=== PATIENT | female | born 1980 ===

== ENCOUNTER 2020-06-25 08:22 | Inpatient (IN) | payer SELFPAY ==
[2020-06-25] MEDS ORDERED: ePHEDrine SULFATE 50 MG/1 ML INJ IV PRN (11:28)
[2020-06-25] MEDS ORDERED: LIDOCAINE (2%) 20 MG/1 ML VIAL 20 ML MDV INFILTRATI ONE (11:28)
[2020-06-25] MEDS ORDERED: MINERAL OIL 30 ML ORAL LIQD PO PRN (11:28)
[2020-06-25] MEDS ORDERED: TERBUTALINE 1 MG/1 ML INJ SUB-Q PRN (11:28)
[2020-06-25] MEDS ORDERED: OXYTOCIN 20 UNIT/1000ML DRIP 20 UNITS/1,000 ML BAG IV SCH (12:00)
[2020-06-25] MEDS ORDERED: OXYTOCIN DRIP 30 UNITS/500 ML BAG IV SCH (12:00)
[2020-06-25] MEDS ORDERED: DINOPROSTONE 10 MG VAG SUPP VG ONE (12:40)
--- NOTE | 2020-06-25 12:46 | History and Physical Report ---
History of Present Illness Date of examination: 06/25/20 Date of admission: 06/25/20 Chief complaint: Pt presents to L&D for an induction r/t AMA and LGA. She admits to active FM. History of present illness: 43 y/o female presented to [facility] for a scheduled IOL r/t AMA and LGA. Pt initiated pnc at [facility] y at 10.2 wks. She has a hx of LGA, obesity, and anxiety. GBS is neg. Pt was admitted to L&D for a cervidil induction. Past History Past Medical History: other (ama) Past Surgical History: no surgical history Family/Genetic History: diabetes Social history: no significant social history, - Obstetrical History Expected Date of Delivery: 06/19/20 Actual Gestation: 40 Week(s) 6 Day(s) : 5 Para: 4 Hx # Term Pregnancies: 5 Number of Pregnancies: 0 Number of Living Children: 4 Medications and Allergies Allergies Allergy/AdvReac Type Severity Reaction Status Date / Time No Known Allergies Allergy Unverified 06/25/20 11:14 Active Meds: Active Medications Acetaminophen (Tylenol) 650 mg PO Q4H PRN PRN Reason: Pain, Mild (1-3) Ephedrine Sulfate (Ephedrine Sulfate) 10 mg IV Q2M PRN PRN Reason: Hypotension Oxytocin/Sodium Chloride (Pitocin/Ns 30 Unit/500ml) 30 units in 500 mls @ 2 mls/hr IV TITR SERGE; Protocol Lactated Ringer's (Lactated Ringers) 1,000 mls @ 125 mls/hr IV DIRECT SERGE Oxytocin/Sodium Chloride (Pitocin/Ns 20 Unit/1000ml Drip) 20 units in 1,000 mls @ 125 mls/hr IV DIRECT SERGE Mineral Oil (Mineral Oil) 30 ml PO QHS PRN PRN Reason: Constipation Terbutaline Sulfate (Brethine) 0.25 mg SUB-Q ONCE PRN PRN Reason: Hyperstimulation/Hypertonicity Review of Systems All systems: negative Eyes: deferred Ears, nose, mouth and throat: deferred Breasts: normal - Vital Signs Vital signs: Vital Signs Pulse BP 76 134/71 06/25/20 09:20 06/25/20 09:20 Temp Pulse Resp BP Pulse Ox 98.3 F 75 17 134/71 98 10/01/20 09:21 06/25/20 11:37 06/25/20 09:21 06/25/20 09:21 06/25/20 11:37 - Physical Exam Breasts: Positive: normal Cardiovascular: Regular rate Lungs: Positive: Clear to auscultation Abdomen: Positive: normal appearance, soft, normal bowel sounds, other (gravid) Genitourinary (Female): Positive: normal external genitalia, normal perenium Vulva: both: normal Vagina: Positive: normal moisture Uterus: Positive: normal size, normal contour Anus/Rectum: Positive: normal perianal skin Extremities: Positive: normal - Obstetrical FHR: auscultation normal, category 1 Uterine Contraction Monitor Mode: External Cervical Dilatation: 1 Cervical Effacement Percentage: 40 station: -3 Uterine Contraction Pattern: Irregular Uterine Tone Measurement Phase: Resting Uterine Contraction Intensity: Mild Results All other labs normal. Assessment and Plan A: IUP@ 40.6 wks postdates AMA, anxiety, obesity, Hx LGA P:Admit to L&D for cervidil induction Continuous monitoring Pain med/Epidural prn Anticipate - Patient Problems (1) Post-dates Current Visit: Yes Status: Acute (2) AMA (advanced maternal age) multigravida 35+ Current Visit: Yes Status: Acute (3) Anxiety Current Visit: Yes Status: Acute (4) Obesity Current Visit: Yes Status: Acute
[2020-06-25 13:44] LABS: Hematocrit 35.2 % (30.3-42.9); Hemoglobin 12.2 gm/dl (10.1-14.3); Mean Corpuscular HGB Conc 35 % (30-34); Mean Corpuscular Volume 91 fl (79-97); Red Blood Count 3.86 M/mm3 (3.65-5.03); Red Cell Distribution Width 14.5 % (13.2-15.2)
[2020-06-25 13:49] LABS: Platelet Count 187 K/mm3 (140-440)
[2020-06-25] MEDS: ACETAMINOPHEN 325 MG TAB PO PRN ×2 (13:56→18:14)
[2020-06-25] MEDS: LACTATED RINGERS 1,000 ML IV SCH ×2 (15:48→23:38)
[2020-06-26] MEDS: LACTATED RINGERS 1,000 ML IV SCH ×3 (06:15→16:33)
[2020-06-26] MEDS ORDERED: DEXMEDETOMIDINE 200 MCG/2 ML VIAL IV ONE (12:23)
--- NOTE | 2020-06-26 12:59 | Anesthesia Consultation ---
Anesthesia Consult and Med Hx Date of service: 06/26/20 - Airway Anesthetic Teeth Evaluation: Good ROM Head & Neck: Adequate Mental/Hyoid Distance: Adequate Mallampati Class: Class II Intubation Access Assessment: Probably Good - Pulmonary Exam CTA: Yes - Cardiac Exam Cardiac Exam: RRR - Pre-Operative Health Status ASA Pre-Surgery Classification: ASA2 Proposed Anesthetic Plan: Epidural - Pulmonary Hx Smoking: No Hx Asthma: No COPD: No Hx Pneumonia: No Hx Sleep Apnea: No - Cardiovascular System Hx Hypertension: No - Central Nervous System Hx Seizures: No Hx Psychiatric Problems: No - Gastrointestinal Hx Gastroesophageal Reflux Disease: No - Endocrine Hx Renal Disease: No Hx End Stage Renal Disease: No Hx Hypothyroidism: No Hx Hyperthyroidism: No - Hematic Hx Anemia: No Hx Sickle Cell Disease: No - Other Systems Hx Alcohol Use: No
[2020-06-26] MEDS ORDERED: NalbUPHINE 10 MG/1 ML INJ IV PRN (13:03)
[2020-06-26] MEDS ORDERED: NALOXONE 2 MG/2 ML INJ IV PRN (13:03)
[2020-06-26] MEDS ORDERED: ONDANSETRON 4 MG/2 ML INJ IV PRN (13:03)
[2020-06-26] MEDS ORDERED: diphenhydrAMINE 50 MG/ML VIAL IV PRN (13:03)
--- NOTE | 2020-06-26 13:03 | Progress Note ---
Labor Epidural - Labor Epidural Start Time: 12:30 Stop Time: 12:49 Performed by:: FREDERICK ORELLANA (Ly LOREDO) Procedure: Patient is requesting a laboring epidural for laboring pain. Patient IDed, H&P reviewed, all questions and concerns were answered, and consent was signed. Timeout was performed at bedside. Patient in sitting position. Sterile prep and drape was performed. 3ml of 1% lidocaine skin wheal at L[3]- L [4]. 18-gau ge Touhy epidural needle was advanced, 1st attempt unsuccessful. 2nd attempt 3ml of 1% lidocaine skin wheal at L[2]- L [3]. 18-gauge Touhy epidural needle was advanced to loss of resistance with air technique. Negative CSF negative blood. Epidural catheter advanced to [12] centimeters. [-] Aspiration [-] test dose. Sterile dressing applied. Patient tolerated procedure.
[2020-06-26] MEDS ORDERED: fentaNYL-BUPIV 2 MCG/ML-0.125% 200 MCG/100 ML BAG EPIDURAL SCH (14:00)
[2020-06-26] MEDS ORDERED: PROMETHAZINE 25 MG TAB PO PRN (16:53)
[2020-06-26] MEDS ORDERED: LANOLIN/ZINC/DIMETHICONE (LANSINOH) 7 GM TP PRN (16:53)
[2020-06-26] MEDS ORDERED: WITCH HAZEL/ GLYCERIN PAD TP PRN (16:53)
[2020-06-26] MEDS ORDERED: MAGNESIUM HYDROXIDE (MOM) ORAL LIQD UDC PO PRN (16:53)
[2020-06-26] MEDS ORDERED: diphenhydrAMINE 25 MG CAP PO PRN (16:53)
--- NOTE | 2020-06-26 17:08 | Procedure Note ---
OB Delivery Note - Delivery Date of Delivery: 06/26/20 (1602) Surgeon: FERNANDA ESCOBEDO (CNM) Estimated blood loss: 200cc - Vaginal Delivery presentation: vertex Delivery position: OA ([place]) Intrapartum events: meconium (moderate stained) Delivery induction: none Delivery augmentation: rupture of membranes (AROM @ 1440, meconium stained) Delivery monitor: external FHT, external uterine Route of delivery: Delivery placenta: spontaneous (1607, treviño) Delivery cord: 3 umbilical vessels Episiotomy: none Delivery laceration: none Anesthesia: none Delivery comments: of viable quiet male infant placed directly to maternal abdomen. NICU team at bedside for delivery secondary to meconium. Cord double clamped, cut by m yself and infant handed over to awaiting NICU team for evaluation. Placenta spontaneously delivered, kamila, disposed per hospital policy. Uterus firm @ U-2, hemostasis maintained. Perineum intact. Mother and baby safe, stable and left in care of RN. - A at 1 minute: 8 at 5 minutes: 9 Gender: Male (Weight: 3891 gms (8lbs 9.2ozs) 20 inches)
[2020-06-26 20:58] LABS: Basophils % (Auto) 0.2 % (0.0-1.8); Eosinophils % (Auto) 0.3 % (0.0-4.3); Hematocrit 32.9 % (30.3-42.9); Hemoglobin 11.1 gm/dl (10.1-14.3); Lymphocytes # (Auto) 1.8 K/mm3 (1.2-5.4); Lymphocytes % (Auto) 14.6 % (13.4-35.0); Mean Corpuscular HGB Conc 34 % (30-34); Mean Corpuscular Volume 93 fl (79-97); Monocytes # (Auto) 0.6 K/mm3 (0.0-0.8); Monocytes % (Auto) 5.1 % (0.0-7.3); Platelet Count 170 K/mm3 (140-440); Red Blood Count 3.53 M/mm3 (3.65-5.03); Red Cell Distribution Width 14.5 % (13.2-15.2)
[2020-06-26] MEDS: IBUPROFEN 600 MG TAB PO SCH (21:03)
[2020-06-26 21:14] LABS: Alanine Aminotransferase 11 units/L (7-56); Albumin 2.4 g/dL (3.9-5); BUN/Creatinine Ratio 20; Blood Urea Nitrogen 6 mg/dL (7-17); Calcium 8.1 mg/dL (8.4-10.2); Hemolysis Index 3
[2020-06-26 21:15] LABS: Uric Acid 3.9 mg/dL (3.5-7.6)
[2020-06-27 03:18] LABS: Bilirubin,Urine NEG (Negative); Blood,Urine LG (Negative); Color,Urine Yellow (Yellow); Mucus,Urine 2+ /HPF
[2020-06-27 03:22] LABS: Protein,Urine >500 mg/dL (Negative); RBC,Urine > 182.0 /HPF (0.0-6.0)
[2020-06-27] MEDS: IBUPROFEN 600 MG TAB PO SCH ×3 (03:26→22:12)
[2020-06-27] MEDS ORDERED: DIPHtheria,PERTUSSIS(ACELL),TETANUS VACCINE/PF 0.5 ML VIAL IM ONE (06:00)
[2020-06-27 06:52] LABS: Hematocrit 28.6 % (30.3-42.9); Hemoglobin 10.1 gm/dl (10.1-14.3)
[2020-06-27] MEDS: oxyCODONE /ACETAMINOPHEN 5-325MG TAB PO PRN ×2 (08:40→14:45)
--- NOTE | 2020-06-27 11:22 | Progress Note ---
Assessment and Plan A: day 1 S/P . Anemia. P: Supplement with iron. Continue current managaement. Subjective - Subjective Date of service: 06/27/20 Principal diagnosis: day 1 S/P Patient reports: appetite normal, voiding normally, pain well controlled, flatus, ambulating normally, no dizzy ambulation, no nauseated [place]: doing well Objective - Vital Signs Latest vital signs: Vital Signs Temp Pulse Resp BP BP Pulse Ox 06/27/20 07:52 97.8 F 66 18 127/68 97 06/27/20 05:48 98.1 F 63 18 135/68 97 06/27/20 00:03 98.3 F 75 18 127/69 99 06/26/20 21:00 138/72 06/26/20 19:30 98.0 F 69 18 136/71 98 06/26/20 19:04 98.8 F 06/26/20 17:10 73 97 06/26/20 17:05 67 98 06/26/20 17:00 81 99 06/26/20 16:55 81 97 06/26/20 16:50 73 96 06/26/20 16:47 74 158/77 06/26/20 16:45 73 97 06/26/20 16:40 69 97 06/26/20 16:35 69 96 06/26/20 16:32 68 155/77 06/26/20 16:30 73 96 06/26/20 16:25 80 99 06/26/20 16:20 65 98 06/26/20 16:19 72 0 L 06/26/20 16:18 64 137/72 06/26/20 16:15 71 97 06/26/20 16:13 65 94 06/26/20 16:10 66 97 06/26/20 16:05 68 96 06/26/20 16:00 71 99 06/26/20 15:55 75 100 06/26/20 15:50 89 100 06/26/20 15:49 68 155/81 06/26/20 15:45 73 100 06/26/20 15:40 60 100 06/26/20 15:35 58 L 100 06/26/20 15:32 57 L 156/84 06/26/20 15:30 62 171/87 100 06/26/20 15:25 67 100 06/26/20 15:20 65 100 06/26/20 15:15 62 157/86 100 06/26/20 15:10 61 161/88 100 06/26/20 15:05 61 163/91 100 06/26/20 15:00 61 161/88 100 06/26/20 14:57 63 164/86 06/26/20 14:55 72 100 06/26/20 14:51 66 170/90 06/26/20 14:50 68 100 06/26/20 14:48 67 161/88 06/26/20 14:45 68 168/92 100 06/26/20 14:41 76 164/83 06/26/20 14:40 72 98 06/26/20 14:35 66 137/87 99 06/26/20 14:32 59 L 146/77 06/26/20 14:30 58 L 98 06/26/20 14:25 63 135/73 96 06/26/20 14:22 58 L 141/69 06/26/20 14:20 58 L 97 06/26/20 14:15 62 126/74 96 06/26/20 14:12 60 131/73 06/26/20 14:10 64 94 06/26/20 14:08 62 94 06/26/20 14:05 70 148/87 97 06/26/20 14:00 71 144/80 97 06/26/20 13:55 65 99 06/26/20 13:54 64 149/74 06/26/20 13:52 59 L 156/68 06/26/20 13:50 66 138/75 98 06/26/20 13:48 67 153/82 06/26/20 13:45 62 143/77 97 06/26/20 13:43 68 150/78 06/26/20 13:42 62 142/80 06/26/20 13:40 64 96 06/26/20 13:39 62 144/76 06/26/20 13:37 62 142/81 06/26/20 13:35 66 145/85 97 06/26/20 13:33 65 145/80 06/26/20 13:32 59 L 152/83 06/26/20 13:30 74 158/90 98 06/26/20 13:27 66 140/77 06/26/20 13:25 67 99 06/26/20 13:20 54 L 136/63 99 06/26/20 13:18 69 140/72 06/26/20 13:16 66 133/68 06/26/20 13:15 64 99 06/26/20 13:14 64 146/70 06/26/20 13:11 67 127/64 06/26/20 13:10 64 100 06/26/20 13:09 58 L 125/62 06/26/20 13:07 72 132/71 06/26/20 13:05 65 132/65 97 06/26/20 13:03 70 125/58 06/26/20 13:01 70 131/58 06/26/20 13:00 64 98 06/26/20 12:59 68 123/60 06/26/20 12:58 74 129/56 06/26/20 12:55 70 98 06/26/20 12:50 66 99 06/26/20 12:45 69 97 06/26/20 12:40 64 99 06/26/20 12:35 59 L 97 06/26/20 12:30 75 98 06/26/20 12:06 65 99 06/26/20 12:01 63 99 06/26/20 11:56 61 99 06/26/20 11:51 56 L 98 06/26/20 11:46 63 95 06/26/20 11:41 60 98 06/26/20 11:36 63 96 06/26/20 11:31 65 99 06/26/20 11:26 62 98 06/26/20 11:21 64 99 Intake and Output 06/26/20 06/27/20 06/27/20 23:59 07:59 15:59 Intake Total 402.083 320 360 Output Total 100 200 Balance 302.083 120 360 Intake: IV 2.083 Lactated Ringers 1,000 ml 2.083 @ 125 mls/hr IV DIRECT SERGE Rx#:[id number] Oral 400 320 120 Intake, Free Water 240 Output: Urine 100 200 Void 100 200 Other: Total, Intake Amount 200 120 120 Total, Output Amount 100 200 # Voids Void 100 1 1 Estimated Blood Loss 200 - Exam Cardiovascular: Present: Regular rate, No murmurs Lungs: Present: Clear to auscultation Abdomen: Present: normal appearance, soft, normal bowel sounds. Absent: distention, tenderness Uterus: Present: normal, firm, fundal height below umbilicus. Absent: bogginess, tenderness Extremities: Present: normal. Absent: tenderness - Labs Labs: Abnormal lab results 06/26/20 06/26/20 06/27/20 Range/Units 20:26 20:26 01:00 WBC 12.3 H (4.5-11.0) K/mm3 RBC 3.53 L (3.65-5.03) M/mm3 Hct (30.3-42.9) % Seg Neutrophils % 79.8 H (40.0-70.0) % Seg Neutrophils # 9.9 H (1.8-7.7) K/mm3 Sodium 135 L (137-145) mmol/L BUN 6 L (7-17) mg/dL Creatinine 0.3 L (0.6-1.2) mg/dL Glucose 103 H (65-100) mg/dL Calcium 8.1 L (8.4-10.2) mg/dL Total Protein 4.9 L (6.3-8.2) g/dL Albumin 2.4 L (3.9-5) g/dL Urine WBC (Auto) 18.0 H (0.0-6.0) /HPF 06/27/20 Range/Units 05:40 WBC (4.5-11.0) K/mm3 RBC (3.65-5.03) M/mm3 Hct 28.6 L (30.3-42.9) % Seg Neutrophils % (40.0-70.0) % Seg Neutrophils # (1.8-7.7) K/mm3 Sodium (137-145) mmol/L BUN (7-17) mg/dL Creatinine (0.6-1.2) mg/dL Glucose (65-100) mg/dL Calcium (8.4-10.2) mg/dL Total Protein (6.3-8.2) g/dL Albumin (3.9-5) g/dL Urine WBC (Auto) (0.0-6.0) /HPF
--- NOTE | 2020-06-27 17:37 | Post Anesthesia Evaluation ---
- Post Anesthesia Evaluation Patient Participated: Yes Airway Patent: Yes Stable Respiratory Function: Yes Nausea/Vomiting: No Temp > 96.8F: Yes Pain Manageable: Yes Adequeate Hydration: Yes Anesthesia Complications: No Block Receding Appropriately: Yes Patient on Ventilator: No
[2020-06-27] MEDS: FERROUS SULFATE 325 MG TAB PO SCH (22:11)
[2020-06-28] MEDS: FERROUS SULFATE 325 MG TAB PO SCH (09:39)
[2020-06-28] MEDS: oxyCODONE /ACETAMINOPHEN 5-325MG TAB PO PRN (09:39)
--- NOTE | 2020-06-28 10:56 | Progress Note ---
Assessment and Plan A: day 2 S/P . Anemia. P: Continue iron supplementation. Repeat urinalysis; obtain cath specimen. Spoke with pt.'s nurse about this. Subjective - Subjective Date of service: 06/28/20 Principal diagnosis: day 2 S/P Interval history: Awaiting repeat urinalysis (cath specimen); previous specimen contaminated with blood. BPs mildly elevated. Patient reports: appetite normal, voiding normally, pain well controlled, flatus, ambulating normally, no dizzy ambulation [place]: doing well Objective - Vital Signs Latest vital signs: Vital Signs Temp Pulse Resp BP BP Pulse Ox 06/28/20 08:40 98.3 F 72 18 144/83 97 06/28/20 00:50 98.1 F 69 18 132/57 98 06/27/20 22:12 20 06/27/20 16:25 98.5 F 71 18 142/75 97 Intake and Output 06/27/20 06/28/20 06/28/20 23:59 07:59 15:59 Intake Total 480 480 Balance 480 480 Intake: Oral 480 480 Other: Total, Intake Amount 240 240 # Voids Void 1 1 - Exam Cardiovascular: Present: Regular rate, No murmurs Lungs: Present: Clear to auscultation Abdomen: Present: normal appearance, soft, normal bowel sounds. Absent: distention, tenderness, guarding, rigidity Uterus: Present: normal, firm, fundal height below umbilicus. Absent: bogginess, tenderness Extremities: Present: normal, edema (mild edema of feet and hands). Absent: tenderness
[2020-06-28 11:41] LABS: Bilirubin,Urine NEG (Negative); Blood,Urine MOD (Negative); Color,Urine Yellow (Yellow); Mucus,Urine FEW /HPF; Urobilinogen,Urine < 2.0 mg/dL (<2.0); WBC,Urine < 1.0 /HPF (0.0-6.0)
[2020-06-28] MEDS: IBUPROFEN 600 MG TAB PO SCH (14:50)
--- NOTE | 2020-06-28 15:08 | Discharge Summary ---
Providers - Providers Date of Admission: 06/25/20 11:28 Date of discharge: 06/28/20 Attending physician: MARIZA BOURNE MD Primary care physician: MARIZA BOURNE MD Hospitalization Reason for admission: induction of labor Delivery: Episiotomy: none Laceration: none Other procedures: none complications: none Discharge diagnosis: IUP at term delivered [place] baby: male Pertinent studies: Labs Hospital course: Stable hospital course. Condition at discharge: Good Disposition: DC-01 TO HOME OR SELFCARE - Discharge Diagnoses (1) Term delivered Status: Acute (2) Anemia Status: Acute Plan - Provider Discharge Summary Activity: routine, no sex for 6 weeks, no heavy lifting 4 weeks, no strenuous exercise Diet: routine Instructions: routine Additional instructions: Continue taking your vitamins and iron supplements at home. [facility] to [facility] on Monday06/29/2020 or Monday06/30/2020 for BP check. Call your doctor immediately for: * Fever > 100.5 * Heavy vaginal bleeding ( >1 pad per hour) * Severe persistent headache * Shortness of breath * Reddened, hot, painful area to leg or breast - Follow up plan Follow up: MARIZA BOURNE MD [Primary Care Provider] - 48 Hours Forms: [facility] Discharge Summary
[2020-06-28 15:11] VITALS: BP 131/73
== END 2020-06-28 17:10 | disposition home or self-care (01) | DRG 807 ==
LOC: TRG 08:22 → LD 08:49 → TRG 11:28 → LD 11:28 → OB 06-26 19:33
PROVIDERS: ADMIT Obstetrics & Gynecology; ATTEND Obstetrics & Gynecology
PROC: 10E0XZZ Delivery of Products of Conception, External Approach (ICD-10-PCS; principal; 2020-06-26)
PROC: 10907ZC Drainage of Amniotic Fluid, Therapeutic from Products of Conception, Via Natural or Artificial Opening (ICD-10-PCS; 2020-06-26)
PROC: 3E0234Z Introduction of Serum, Toxoid and Vaccine into Muscle, Percutaneous Approach (ICD-10-PCS; 2020-06-27)
DX: O36.63X0 Maternal care for excessive fetal growth, third trimester, not applicable or unspecified (principal); Z37.0 Single live birth; F41.9 Anxiety disorder, unspecified; E66.9 Obesity, unspecified; Z3A.40 40 weeks gestation of pregnancy; O48.0 Post-term pregnancy; O99.214 Obesity complicating childbirth; O99.344 Other mental disorders complicating childbirth; O77.0 Labor and delivery complicated by meconium in amniotic fluid; O90.81 Anemia of the puerperium; Z20.828 Contact with and (suspected) exposure to other viral communicable diseases; D64.9 Anemia, unspecified
CPT/HCPCS: 36415; 59200; 80053; 81001; 83615; 84550; 85014; 85018; 85025; 85027; 86850; 86900; 86901; 87086; 90471; 90715; G0378; J2590; J3490; J7120; U0003-CS

== ENCOUNTER 2020-06-29 17:10 | Observation (INO) | payer SELFPAY ==
[2020-06-29] MEDS ORDERED: MAGNESIUM SULFATE 4 GM/100 ML BAG IV ONE (17:21)
[2020-06-29 17:31] LABS: Basophils # (Auto) 0.1 K/mm3 (0.0-0.1); Basophils % (Auto) 0.7 % (0.0-1.8); Eosinophils # (Auto) 0.1 K/mm3 (0.0-0.4); Eosinophils % (Auto) 1.6 % (0.0-4.3); Hematocrit 31.3 % (30.3-42.9); Hemoglobin 10.8 gm/dl (10.1-14.3); Lymphocytes # (Auto) 1.6 K/mm3 (1.2-5.4); Mean Corpuscular HGB Conc 34 % (30-34); Mean Corpuscular Volume 92 fl (79-97); Monocytes # (Auto) 0.5 K/mm3 (0.0-0.8); Platelet Count 202 K/mm3 (140-440); Red Cell Distribution Width 14.4 % (13.2-15.2)
[2020-06-29 17:56] LABS: Alanine Aminotransferase 38 units/L (7-56); Albumin 3.2 g/dL (3.9-5); BUN/Creatinine Ratio 24; Blood Urea Nitrogen 12 mg/dL (7-17); Calcium 8.8 mg/dL (8.4-10.2); Hemolysis Index 3
--- NOTE | 2020-06-29 18:11 | Cat Scan Report ---
NONENHANCED CT SCAN OF THE HEAD: INDICATION / CLINICAL INFORMATION: 40 years Female; hypertension, headache. TECHNIQUE: Routine CT head without contrast. All CT scans at this location are performed using CT dos e reduction for ALARA by means of automated exposure control. COMPARISON: None. FINDINGS: BRAIN / INTRACRANIAL CONTENTS: 1. No intracerebral hemorrhage 2. Conte matter white matter junction normal; no CT evidence of posterior reversible encephalopathy sy ndrome 3. Partial empty sella 4. No CT findings to suggest venoocclusive disease of the brain 5. Paranasal sinuses are normal. CRANIOCERVICAL JUNCTION: No significant abnormality. ORBITS: No significant abnormality of visualized orbits. SINUSES / MASTOIDS: No significant abnormality of the visualized paranasal sinuses or mastoid air cristel ls. ADDITIONAL FINDINGS: None. IMPRESSION: Normal nonenhanced CT scan of the brain Signer Name: Cliff Stanley MD Signed: 06/29/2020 6:06 PM Workstation Name: [id number]
--- NOTE | 2020-06-29 19:39 | Emergency Department Report ---
HPI - General Chief Complaint: High BP Time Seen by Provider: 06/29/20 19:26 - HPI HPI: Room 17 The patient is a 40-year-old female present with a chief complaint of hypertension and headache. The patient is status post vaginal delivery 06/26 and states yesterday she developed a mild frontal headache with blurred vision. The patient states for the past 2 days she is had bilateral lower extremity edema. Patient denies a previous history of hypertension but was told at the clinic today she was hypertensive and sent to the ED for further management. Patient currently denies complaints. Patient states she is breast- feeding ED Past Medical Hx - Past Medical History Previous Medical History?: No - Surgical History Past Surgical History?: No Hx Cholecystectomy: Yes - Family History Family history: no significant - Social History Smoking Status: Never Smoker Substance Use Type: None (Denies illicit drug use) - Medications Home Medications: Home Medications Medication Instructions Recorded Confirmed Last Taken Type No Known Home Medications [No 06/27/20 06/27/20 Unknown History Reported Home Medications] ED Review of Systems ROS: Stated complaint: HBP SENT BY OB Other details as noted in HPI Constitutional: no symptoms reported Eyes: vision change Respiratory: no symptoms reported Cardiovascular: denies: chest pain Endocrine: no symptoms reported Gastrointestinal: denies: abdominal pain Neurological: headache Hematological/Lymphatic: other (Lower extremity edema) Physical Exam - Physical Exam Vital Signs: Vital Signs 06/29/20 17:17 Temperature 99.1 F Pulse Rate 81 Respiratory 18 Rate Blood Pressure 161/102 O2 Sat by Pulse 98 Oximetry Physical Exam: GENERAL: The patient is well-developed well-nourished female standing in room not appearing to be in acute distress. [] HEENT: Normocephalic. Atraumatic. Extraocular motions are intact. Patient has moist mucous membranes. NECK: Supple. No meningitic signs are noted. Trachea midline CHEST/LUNGS: Clear to auscultation. There is no respiratory distress noted. HEART/CARDIOVASCULAR: Regular. There is no tachycardia. There is no gallop rub or murmur. ABDOMEN: Abdomen is soft, nontender. Patient has normal bowel sounds. There is no abdominal distention. SKIN: There is no rash. There is 2+ bilateral lower extremity pitting edema. There is no diaphoresis. NEURO: The patient is awake, alert, and oriented. The patient is cooperative. The patient has no focal neurologic deficits. The patient has normal speech and gait. Cranial nerves II through XII grossly intact MUSCULOSKELETAL: There is no evidence of acute injury. ED Course Vital Signs 06/29/20 17:17 Temperature 99.1 F Pulse Rate 81 Respiratory 18 Rate Blood Pressure 161/102 O2 Sat by Pulse 98 Oximetry - Consultations Consultation #1: 06/29/20 19:43 [employer] paged 06/29/20 19:[address] Reis- Send patient to labor and delivery ED Medical Decision Making - Lab Data Result diagrams: 06/29/20 17:22 06/29/20 17:22 Laboratory Tests 06/29/20 06/29/20 17:22 17:22 WBC 7.8 RBC 3.40 L Hgb 10.8 Hct 31.3 MCV 92 MCH 32 MCHC 34 RDW 14.4 Plt Count 202 Lymph % (Auto) 20.0 [place] % (Auto) 6.0 Eos % (Auto) 1.6 Baso % (Auto) 0.7 Lymph # (Auto) 1.6 [place] # (Auto) 0.5 Eos # (Auto) 0.1 Baso # (Auto) 0.1 Seg Neutrophils % 71.7 H Seg Neutrophils # 5.6 Sodium 138 Potassium 3.8 Chloride 101.7 Carbon Dioxide 21 L Anion Gap 19 BUN 12 Creatinine 0.5 L D Estimated GFR > 60 BUN/Creatinine Ratio 24 Glucose 95 Calcium 8.8 Total Bilirubin 0.20 AST 34 ALT 38 Alkaline Phosphatase 123 Total Protein 6.4 D Albumin 3.2 L Albumin/Globulin Ratio 1.0 - Differential Diagnosis Preeclampsia, ICH, Critical care attestation.: If time is entered above; I have spent that time in minutes in the direct care of this critically ill patient, excluding procedure time. ED Disposition Clinical Impression: Preeclampsia Disposition: DC-09 OP ADMIT IP TO THIS HOSP Is pt being admited?: Yes Does the pt Need Aspirin: No Condition: Fair Instructions: Hypertension (ED) Time of Disposition: 19:47 (Admitted to Dr. Reis)
[2020-06-29] MEDS ORDERED: ONDANSETRON 4 MG/2 ML INJ IV PRN (23:07)
[2020-06-29] MEDS ORDERED: BUTORPHANOL 2 MG/1 ML INJ IV PRN (23:07)
[2020-06-29] MEDS ORDERED: MINERAL OIL 30 ML ORAL LIQD PO PRN (23:07)
[2020-06-29] MEDS ORDERED: ACETAMINOPHEN 325 MG TAB PO PRN (23:07)
[2020-06-29] MEDS ORDERED: PROMETHAZINE 25 MG TAB PO PRN (23:07)
[2020-06-29] MEDS ORDERED: LACTATED RINGERS 1,000 ML IV SCH (23:45)
[2020-06-30] MEDS ORDERED: IBUPROFEN 600 MG TAB PO PRN (03:23)
[2020-06-30 09:02] VITALS: BP 124/64
== END 2020-06-30 10:15 | disposition home or self-care (01) ==
LOC: ED 17:10 → LD 21:25
PROVIDERS: ADMIT Obstetrics & Gynecology; ATTEND Obstetrics & Gynecology
DX: O14.95 Unspecified pre-eclampsia, complicating the puerperium (principal); O90.89 Other complications of the puerperium, not elsewhere classified; R51.9 Headache, unspecified; H53.8 Other visual disturbances
CPT/HCPCS: 36415; 70450; 80053; 85025; 86850; 86900; 86901; 96365; 96375; 99284; G0378; J3475; 96360

== ENCOUNTER 2020-07-01 11:34 | Emergency (ER) | payer SELFPAY ==
--- NOTE | 2020-07-01 11:52 | Emergency Department Report ---
Blank Doc - Documentation Documentation: 40-YEAR-OLD female that was sent by PCP for preeclampsia . Was admit marce and discharged yesterday and when saw PCP had HTN and was sent back to the ED. Denies any smptoms or complaints in the ED. This initial assessment/diagnostic orders/clinical plan/treatment(s) is/are subject to change based on patient's health status, clinical progression and re- assessment by fellow clinical providers in the ED. Further treatment and workup at subsequent clinical providers discretion. Patient/guardians urged not to elope from the ED as their condition may be serious if not clinically assessed and managed. Initial orders include: 1- Patient sent to MAIN ED for further evaluation and treatment 2- labs 3- UA
[2020-07-01 12:17] LABS: Bilirubin,Urine NEG (Negative); Blood,Urine SM (Negative); Color,Urine Straw (Yellow); Mucus,Urine FEW /HPF; Urobilinogen,Urine < 2.0 mg/dL (<2.0)
--- NOTE | 2020-07-01 12:47 | Emergency Department Report ---
ED General Adult HPI - General Chief complaint: High BP Stated complaint: POST Time Seen by Provider: 07/01/20 11:46 Source: patient Mode of arrival: Ambulatory Limitations: No Limitations - History of Present Illness Initial comments: Patient is 40 years old female 5 para 5. Patient is 5 days . Patient sent from 1 of OB clinic around this area after patient found to have a blood pressure of 200/110. Patient sent here for further evaluation. Patient was seen here 2 days ago and she was admitted to labor and delivery for possible preeclampsia. Patient today she denied any headache however she is complaining of generalized fatigue and weakness. She denied any abdominal pain or any abnormal vaginal bleeding. Patient also denied any blurred vision or neck pain. No chest pain or shortness of breath. - Related Data Previous Rx's Medication Instructions Recorded Last Taken Type labetaloL [Labetalol 100mg TAB] 100 mg PO Q8HR #90 tablet 07/01/20 Unknown Rx Allergies Allergy/AdvReac Type Severity Reaction Status Date / Time No Known Allergies Allergy Unverified 06/25/20 11:14 ED Review of Systems ROS: Stated complaint: POST Other details as noted in HPI Comment: All other systems reviewed and negative Constitutional: denies: chills, fever Respiratory: denies: cough, shortness of breath, SOB with exertion, SOB at rest Cardiovascular: denies: chest pain Gastrointestinal: denies: abdominal pain, nausea, vomiting Musculoskeletal: denies: back pain Neurological: weakness. denies: headache, numbness, paresthesias, confusion, abnormal gait ED Past Medical Hx - Past Medical History Previous Medical History?: No Hx Hypertension: No Hx Diabetes: No Hx Renal Disease: No Hx Sickle Cell Disease: No Hx Seizures: No Hx Asthma: No - Surgical History Past Surgical History?: Yes Hx Cholecystectomy: Yes - Social History Smoking Status: Never Smoker Substance Use Type: None - Medications Home Medications: Home Medications Medication Instructions Recorded Confirmed Last Taken Type labetaloL [Labetalol 100mg TAB] 100 mg PO Q8HR #90 tablet 07/01/20 Unknown Rx ED Physical Exam - General Limitations: No Limitations General appearance: alert, in no apparent distress - Head Head exam: Present: atraumatic, normocephalic, normal inspection - Eye Eye exam: Present: normal appearance, PERRL - ENT ENT exam: Present: normal exam, normal orophraynx, mucous membranes moist - Neck Neck exam: Present: normal inspection, full ROM. Absent: tenderness, meningismus - Respiratory Respiratory exam: Present: normal lung sounds bilaterally - Cardiovascular Cardiovascular Exam: Present: regular rate, normal rhythm, normal heart sounds - GI/Abdominal GI/Abdominal exam: Present: soft, normal bowel sounds. Absent: distended, tenderness, guarding, rebound, rigid, organomegaly, mass, bruit, pulsatile mass, hernia - Extremities Exam Extremities exam: Present: normal inspection, full ROM, normal capillary refill. Absent: pedal edema, calf tenderness - Back Exam Back exam: Present: normal inspection, full ROM. Absent: CVA tenderness (R), CVA tenderness (L) - Neurological Exam Neurological exam: Present: alert, oriented X3, CN II-XII intact, normal gait, reflexes normal. Absent: motor sensory deficit - Psychiatric Psychiatric exam: Present: normal mood - Skin Skin exam: Present: warm, intact, normal color ED Course Vital Signs 07/01/20 07/01/20 07/01/20 11:48 13:39 13:41 Temperature 98.8 F Pulse Rate 73 Respiratory 18 20 Rate Blood Pressure 163/86 Blood Pressure 140/74 [Right] O2 Sat by Pulse 99 100 Oximetry 07/01/20 07/01/20 07/01/20 14:30 16:09 16:38 Temperature Pulse Rate 61 61 Respiratory Rate Blood Pressure 171/88 Blood Pressure 160/81 172/81 [Right] O2 Sat by Pulse Oximetry 07/01/20 07/01/20 07/01/20 17:39 18:11 19:16 Temperature Pulse Rate 67 60 Respiratory 18 Rate Blood Pressure 181/80 Blood Pressure 149/67 157/77 [Right] O2 Sat by Pulse 100 Oximetry ED Medical Decision Making - Lab Data Result diagrams: 07/01/20 13:15 07/01/20 13:15 - Medical Decision Making Patient is 40 years old female 5 para 5. Patient is 5 days . Patient sent from 1 of OB clinic around this area after patient found to have a blood pressure of 200/110. Patient sent here for further evaluation. Patient was seen here 2 days ago and she was admitted to labor and delivery for possible preeclampsia. Patient today she denied any headache however she is complaining of generalized fatigue and weakness. She denied any abdominal pain or any abnormal vaginal bleeding. Patient also denied any blurred vision or neck pain. No chest pain or shortness of breath. Patient received labetalol 10 mg IV. Blood pressure improved significantly. Labs reviewed and is unremarkable. I discussed the patient with Dr. Deng, OB on-call. He stated that if the patient blood pressure control she can go home and follow-up with the clinic in the morning. He stated that patient does not have preeclampsia. Patient advised to return to the ER if she develop any headache, blurry vision or any new symptoms. Critical care attestation.: If time is entered above; I have spent that time in minutes in the direct care of this critically ill patient, excluding procedure time. ED Disposition Clinical Impression: hypertension, Malignant hypertension Disposition: TO HOME OR SELFCARE Is pt being admited?: No Condition: Stable Instructions: Hypertension (ED) Additional Instructions: Follow-up with your OB doctor in the morning. Please return to the ER if you s tart to have headache, blurry vision, weakness numbness or tingling sensation. Please return to the ER if he develop any new symptoms. Prescriptions: labetaloL [Labetalol 100mg TAB] 100 mg PO Q8HR #90 tablet Referrals: DEBBIE SOLIS MD [Primary Care Provider] - 3-5 Days
[2020-07-01 13:43] LABS: Basophils % (Auto) 0.4 % (0.0-1.8); Eosinophils # (Auto) 0.1 K/mm3 (0.0-0.4); Eosinophils % (Auto) 1.5 % (0.0-4.3); Hemoglobin 10.5 gm/dl (10.1-14.3); Lymphocytes # (Auto) 1.2 K/mm3 (1.2-5.4); Lymphocytes % (Auto) 18.5 % (13.4-35.0); Mean Corpuscular HGB Conc 34 % (30-34); Mean Corpuscular Volume 92 fl (79-97); Monocytes # (Auto) 0.3 K/mm3 (0.0-0.8); Monocytes % (Auto) 4.6 % (0.0-7.3); Platelet Count 256 K/mm3 (140-440); Red Blood Count 3.37 M/mm3 (3.65-5.03); Red Cell Distribution Width 14.7 % (13.2-15.2)
[2020-07-01 13:51] LABS: INR 0.97 (0.87-1.13); Partial Thromboplastin Time 25.2 Sec. (24.2-36.6)
[2020-07-01 14:02] LABS: Blood Urea Nitrogen 10 mg/dL (7-17); Calcium 8.8 mg/dL (8.4-10.2); Hemolysis Index 0
[2020-07-01 14:06] LABS: BUN/Creatinine Ratio 25
[2020-07-01 14:07] LABS: Alanine Aminotransferase 35 units/L (7-56); Albumin 3.3 g/dL (3.9-5)
[2020-07-01 14:09] LABS: Bilirubin,Direct < 0.2 mg/dL (0-0.2)
[2020-07-01] MEDS ORDERED: hydrALAZINE 25 MG TAB ONE (19:51)
[2020-07-01] MEDS ORDERED: hydrALAZINE 25 MG TAB PO ONE (19:51)
[2020-07-01 19:53] VITALS: BP 159/87
== END 2020-07-01 20:09 | disposition home or self-care (01) ==
LOC: ED 11:34
DX: O16.5 Unspecified maternal hypertension, complicating the puerperium (principal); Z90.49 Acquired absence of other specified parts of digestive tract
CPT/HCPCS: 36415; 80048; 80076; 81001; 83615; 85025; 85610; 85730; 96374; 96376; 99283